=== PATIENT | female | born 2000 | race Caucasian/White ===

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

== ENCOUNTER 2021-11-30 19:09 | Emergency (ER) | payer OTHER, BC ==
[~2021-11-30] VITALS: Ht 157.5 cm; Wt 50.0 kg
[~2021-11-30 19:09] MED LIST: PROZAC 20MG20 MG PO; ZYPREXA 5MG5 MG PO
[2021-11-30 19:18] VITALS: TEMP 98.1
[2021-11-30 19:41] VITALS: BP 144/78; PULSE 76
== END 2021-11-30 19:41 | disposition home or self-care (01) ==
LOC: COL.ER 19:09
DX: U07.1 COVID-19 (principal); F41.9 Anxiety disorder, unspecified; Z79.899 Other long term (current) drug therapy

== ENCOUNTER 2022-01-11 16:27 | Emergency (ER) | payer OTHER, BC ==
[~2022-01-11] VITALS: Ht 157.5 cm; Wt 50.0 kg
[2022-01-11 16:34] VITALS: TEMP 98.5
[2022-01-11 17:09] LABS: BASO % 0.4 % (0.0-2.0); EOS # 0.3 K/mm3 (0.0-0.7); EOS % 3.1 % (0.0-4.0); GRAN # 7.4 K/mm3 (1.4-6.5); GRAN % 68.8 % (42.2-75.2); HEMATOCRIT 39.1 % (37.0-47.0); HEMOGLOBIN 13.2 g/dl (12.5-16.0); LYMPH % 18.4 % (20.0-51.0); MEAN CELL VOLUME 83 fl (80.0-100.0); MEAN CORPUSCULAR HEMOGLOBIN 28 pg (27-31); MEAN CORPUSCULAR HGB CONC 34 g/dl (33.0-37.0); MEAN PLATELET VOLUME 9.1 fl (7.4-10.4); PLATELET COUNT 289 K/mm3 (130-400); RED BLOOD COUNT 4.73 M/mm3 (4.10-5.30); REDCELL DISTRIBUTION WIDTH-CV 13.2 % (11.5-14.5)
[2022-01-11 17:23] LABS: ALANINE AMINOTRANSFERASE 12 U/L (0-55); ALBUMIN 4.1 gm/dL (3.5-5.0); ALKALINE PHOSPHATASE 58 U/L (40-150); ANION GAP 7 mmol/L (7-16); AST,SGOT 11 U/L (5-34); BILIRUBIN,TOTAL 0.3 mg/dL (0.2-1.2); BLOOD UREA NITROGEN 15 mg/dL (7-19); CALCIUM 9.3 mg/dL (8.4-10.2); CARBON DIOXIDE 26 mmol/L (22-29); CHLORIDE 106 mmol/L (98-107); CREATININE, serum 0.78 mg/dL (0.57-1.11); GLUCOSE 96 mg/dL (70-99); POTASSIUM 3.9 mmol/L (3.5-4.5); SODIUM 139 mmol/L (136-145); TOTAL PROTEIN 7.4 gm/dL (6.2-8.1)
[2022-01-11 17:37] LABS: TROPONIN-I < 0.010 ng/mL (0.00-0.033)
[2022-01-11 19:11] VITALS: BP 128/83; PULSE 90
== END 2022-01-11 19:12 | disposition home or self-care (01) ==
LOC: COL.ER 16:27
PROVIDERS: Emergency Medicine
DX: R07.89 Other chest pain (principal); F17.210 Nicotine dependence, cigarettes, uncomplicated; Z86.16 Personal history of COVID-19
CPT/HCPCS: J1885